=== PATIENT | male | born 1995 | race Caucasian/White ===

== ENCOUNTER 2020-05-17 09:34 | Emergency (ER) | payer OTHER, SELFPAY ==
[2020-05-17 10:02] VITALS: BP 124/90; PULSE 76; RESP 16; TEMP 37.3; O2SAT 97; BMI 17.2
--- NOTE | 2020-05-17 10:19 | ED.WOUNDLAC ---
HPI - Wound/Laceration General Chief Complaint: Wound/Laceration Stated Complaint: right finger injury Time Seen by Provider: 05/17/20 09:43 Source: patient and EMS Mode of arrival: EMS History of Present Illness HPI narrative: 24-year-old male with no significant past medical history presenting to the ED complaining of laceration to right pinky finger s/p playing with pocket knife [employer]. Denies injury to other area. Tetanus unknown. Reports pain. Denies numbness, tingling, weakness Onset (ago): hour(s) Related Data Allergies Allergy/AdvReac Type Severity Reaction Status Date / Time No Known Allergies Allergy Unverified 01/26/20 16:32 Review of Systems Review of Systems: Constitutional: No Weight loss, No Fever, No Chills Musculoskeletal: + joint pain, No Myalgias, No Joint Swelling Skin: +laceration Skin, No rash Neuro: No Weakness, No Numbness, No Paresthesias Yes all other systems are reviewed and are negative [facility] Past Medical History Attestation statement: The following information was validated with the patient. Medical History (Updated 05/17/20 @ 10:51 by GRISELDA Abernathy) No known health problems Social History Social History Advance Directives: No Advance Directives Information Provided: Yes Physical Exam Vital Signs: Vital Signs: Last Vital Signs Temp 99.2 F 05/17/20 10:02 Pulse 76 05/17/20 10:02 Resp 16 05/17/20 10:02 BP 124/90 H 05/17/20 10:02 Pulse Ox 97 05/17/20 10:02 Body Mass Index 17.2 Const: General: cooperative and healthy appearing Orientation/consciousness: patient oriented x3 Limitations: no limitations HENMT: Head: Yes normal to inspection Ears: hearing grossly normal bilaterally General nose exam: Normal external nose present Face and sinus: Yes normal facial exam Eyes: General: appearance normal, both eyes and all related structures EOM: EOMs intact bilaterally Neck: Neck: Yes normal visual inspection Resp: Effort & Inspection: normal respiratory effort Cardio: Rate: regular rate Peripheral pulses: radial pulses present Skin: Rashes: no rashes Neuro: General: patient oriented x3 Gait exam (Neuro): Normal gait present Extrem: Other: 1 cm deep laceration noted to right 5th digit PIP. Active bleeding. Range of motion intact but limited secondary to pain. No evidence of tendon rupture. Sensation intact to light touch Procedures Laceration Laceration 1: Site: hand Side (If applicable): right Size (cm): 1 Description: linear Depth: simple, single layer Local Anesthetic: lidocaine 1% Amount of anesthesia used (mL): 3 Pre-repair: irrigated extensively Skin layer closed with: nylon Size (cm): 4-0 Number of sutures: 2 Technique: simple, interrupted MDM - Wound/Laceration MDM Narrative Medical decision making narrative: On exam VSS, NAD/well-appearing, active bleeding with deep laceration noted to right pinky finger. Will update tetanus and repair wound Will have patient follow-up with orthopedic hand Discharge Plan Discharge Clinical Impression: Finger laceration Qualifiers: Encounter type: initial encounter Finger: little finger Damage to nail status: without damage Foreign body presence: without foreign body Laterality: right Qualified Code(s): S61.216A - Laceration without foreign body of right little finger without damage to nail, initial encounter Patient Disposition: Home, Self-Care Instructions: Laceration (ED) Additional Instructions: YOU HAD STITCHES PLACED IN YOUR RIGHT HAND TODAY IN THE ED, DO NOT GET WET FOR 24 HOURS AFTER 24 HOURS YOU MAY GET WET, POLY PAT DRY, DO NOT SCRUB YOU NEED TO RETURN TO THE ED IN 7-10 DAYS TO HAVE YOUR STITCHES TAKEN OUT, OR HE MAY GO TO AN URGENT CARE IF AREA BEGINS TO LOOK INFECTED, IS RED, THERE IS DRAINAGE, STREAKING, OR YOU FEVER RETURN TO THE ED HER TETANUS WAS ALSO UPDATED TODAY Referrals: Yaritza Walker MD [Physician] - 5 days
[2020-05-17] MEDS: Lidocaine HCl 1 % MPF 5 ML VIAL SUBCUT (10:22)
== END 2020-05-17 11:07 | disposition home or self-care (01) ==
PROVIDERS: Emergency Provider Emergency Medicine Emergency Medical Services; PCP Internal Medicine
DX: S61.216A Laceration without foreign body of right little finger without damage to nail, initial encounter (principal); W26.0XXA Contact with knife, initial encounter; Y93.89 Activity, other specified; Y92.019 Unspecified place in single-family (private) house as the place of occurrence of the external cause; Y99.9 Unspecified external cause status
CPT/HCPCS: 12001; 90471; 90715; 99284

== ENCOUNTER 2020-06-22 08:14 | Emergency (ER) | payer OTHER, SELFPAY ==
--- NOTE | ~2020-06-22 | XR_ITS ---
EXAMINATION: XR CHEST CLINICAL INFORMATION: Chest pain, shortness of breath. COMPARISON: None TECHNIQUE: Portable upright AP view of the chest was obtained. FINDINGS: The lungs are clear. There is no pneumothorax, pleural reaction, airspace consolidation, or groundglass opacity. The costophrenic sulci are clear. The heart is normal in size and the hilar and mediastinal contours are normal. There is gentle dextrocurvature midthoracic spine. No acute bony abnormality appreciated. XR/XR chest 1V IMPRESSION: Unremarkable examination.
[2020-06-22 08:44] VITALS: BP 116/68; BP 132/78; PULSE 107; PULSE 120; RESP 15; TEMP 36.8; O2SAT 100; BMI 20.6
[2020-06-22 08:50] VITALS: BP 116/68; PULSE 107; RESP 15; TEMP 36.8; O2SAT 100
--- NOTE | 2020-06-22 09:14 | ED_ITS ---
HPI - General Adult General Chief complaint: General Medical Stated complaint: covid symptoms Time Seen by Provider: 06/22/20 08:43 Source: patient Mode of arrival: EMS Limitations: no limitations History of Present Illness HPI narrative: 24-year-old male who presents emergency department for evaluation being ill x3 days. The patient states that he has had 5-6 episodes of loose, black, diarrheal stools per day. States that he has a cough which is productive of brown phlegm with no blood in the sputum. He states he has a tightness in the center of his chest which is worse with movement and with breathing. Also feels like his heart is racing. He had nausea but no vomiting. He felt hot and cold at home and also had shaking chills but did not take his temperature. He does have diffuse myalgias. He states he has had decreased ability to taste food. The patient works in fresh [employer] and states that he recently lost his job which has made him very anxious and upset. He states that he has significant fatigue and dyspnea on exertion. Related Data Allergies Allergy/AdvReac Type Severity Reaction Status Date / Time No Known Allergies Allergy Unverified 01/26/20 16:32 Review of Systems Review of Systems: Yes all other systems are reviewed and are negative Neurologic: Reports Abnormal speech present [facility] Past Medical History [facility] Narrative: Patient has a history of ADHD and ADD. He also states that he has anxiety. He was working in fresh [employer] but he states that he lost his job recently and this has made him very upset. He does smoke 1 pack of cigarettes per day x5 days. He denies alcohol use. He states that he smokes marijuana daily. Medical History No known health problems Social History Social History Alcohol intake: never Smoking Status: Current every day smoker Smoked in Last 30 Days: Yes Substance Use Type: Marijuana Substance Use Frequency: Daily Any prior treatment program specific to substance use: No Advance Directives: No Advance Directives Information Provided: No Physical Exam Vital Signs: Vital Signs: Last Vital Signs Temp 97.9 F 06/22/20 12:47 Pulse 85 06/22/20 12:47 Resp 16 06/22/20 12:47 BP 121/62 06/22/20 12:47 Pulse Ox 98 06/22/20 12:47 Body Mass Index 20.6 Const: General: other (Very pleasant cooperative male, appears anxious, no distress) Orientation/consciousness: oriented to person and oriented to place Limitations: no limitations HENMT: Head: Yes normal to inspection, Yes normocephalic and Yes atraumatic Ears: external ears normal General nose exam: Normal external nose present Face and sinus: Yes normal facial exam Mouth: Normal oral and palatal mucosa present Throat: Yes posterior oropharynx normal Eyes: Periorbital: periorbital findings normal Eyelids: Yes eyelids normal Conjunctivae: conjunctivae normal Sclerae: sclerae normal Corneas: corneas normal Pupils: Equal, round and reactive pupils present Direct Ophthalmoscopy: normal light reflex Neck: Neck: Yes full ROM, Yes no lymphadenopathy, Yes no meningeal signs, Yes trachea midline and Yes supple Chest: Chest palpation & inspection: normal inspection of the chest and normal palpation of entire chest wall Resp: Effort & Inspection: normal respiratory effort and able to speak in complete sentences Auscultation: clear to auscultation bilaterally Cardio: Rate: regular rate Rhythm: regular rhythm Heart sounds: S1 normal heart sound present, S2 normal heart sound present and no murmurs GI: Inspection: Yes normal to inspection Palpation (GI): Soft to palpation, nontender, no guarding, not rigid and No hepatosplenomegaly present : General: Yes no CVA tenderness Back/Spine/Pelvis: Back: no CVA tenderness Cervical Spine: normal cervical lordosis Thoracic/Lumbar Spine: thoracic and lumbar spine normal to inspection Skin: Lesions: no lesions Rashes: no rashes Wounds: no wounds Neuro: General: oriented to person, oriented to place and no meningeal signs Cranial nerves: Yes CN's II-XII intact bilaterally and Yes Equal, round and reactive pupils present Cognition (Neuro): normal cognition Speech: Abnormal speech present Motor exam (neuro): 5/5 motor strength present throughout Extrem: General: Yes normal to inspection and Yes full ROM Psych: Appearance: well kempt Mental Status: mental status grossly normal Speech and movement: Normal speech and movement present Affect: normal affect Attitude: cooperative Thought process: Normal thought process present Thought content: Normal thought content present Course Course Course Narrative: 24-year-old male with a history of ADHD, ADD, anxiety who presents emergency department with viral-like illness. Patient's physical examination revealed a was tachycardic with a pulse of 107 otherwise his vital signs are stable. He was afebrile with a temperature of 98.2? and his O2 saturation was 100% on room air. Patient had no abdominal tenderness. The patient will get a COVID-19 workup. He was treated with normal saline IV x1 L given his significant diarrhea I think he is dehydrated. He was also ordered to get Toradol 30 mg IV for his chest pain and Ativan 1 mg IV for his anxiety. 1117: The patient did tell the nurse that he used intranasal cocaine 2-3 days prior. The patient did feel better after the above treatment. Patient's laboratory evaluation revealed an elevated troponin a 49.6. Labs are otherwise negative including a negative COVID-19 test. Twelve EKG revealed sinus rhythm with early repolarization changes. I did discuss the elevated troponin with the patient and could be secondary to to prone in leak from using cocaine. I did order a 3 hour troponin the patient did agree to wait in the emergency department for this test. He is still anxious and he was given Ativan 1 mg orally. 1342: The patient's repeat troponin was 46.9 which came down slightly which is suggestive that the patient has not had an acute myocardial infarction but may have had myocardial injury most likely from using cocaine. I did discuss this with the patient. The patient is feeling significantly better and he will be discharged home. Medical Decision Making Lab Data Result diagrams: 06/22/20 09:44 06/22/20 09:40 Labs: Lab Results 06/22/20 06/22/20 06/22/20 Range/Units 09:40 09:40 09:44 WBC 9.7 (4.8-10.8) X10*3/uL RBC 5.02 (4.60-5.80) X10*6/uL Hgb 14.0 (14.0-18.0) g/dl Hct 42.5 (42-52) % MCV 84.7 (80-98) fL MCH 27.9 (27.0-33.0) pg MCHC 32.9 (31.0-36.0) g/dl RDW 13.1 (11.0-16.0) % Plt Count 245 (160-400) X10*3/uL MPV 9.1 L (9.4-12.4) fL Immature Gran % (Auto) 0.3 (0.0-0.4) % Neut % (Auto) 79.7 H (45-73) % Lymph % (Auto) 11.1 L (20-40) % [place] % (Auto) 8.3 (2-11) % Eos % (Auto) 0.4 (0-4) % Baso % (Auto) 0.2 (0-2) % Lymph # (Auto) 1.1 L (1.2-4.9) X10*3/uL [place] # (Auto) 0.8 (0.1-1.2) X10*3/uL Eos # (Auto) 0.0 (0.0-0.4) X10*3/uL Baso # (Auto) 0.0 (0.0-0.2) X10*3/uL Abs Immat Gran (auto) 0.03 (0.00-0.03) X10*3/uL Absolute Neuts (auto) 7.8 (2.0-8.3) X10*3/uL Absolute Nucleated RBC 0.000 (0.0-0.012) X10*3/uL Nucleated RBC % (auto) 0.0 (0.0-0.2) /100WBC PT (10.8-13.0) SEC INR (0.9-1.1) APTT (24.1-38.0) SEC D-Dimer NG/ML Sodium 139 (135-145) mmol/L Potassium 4.1 (3.3-5.1) mmol/L Chloride 106 (96-108) mmol/L Carbon Dioxide 25 (22-29) mmol/L Anion Gap 12 (12-20) BUN 11 (9-16) mg/dL Creatinine 0.84 (0.5-1.4) mg/dL Estim Creat Clear Calc 128.6 Estimated GFR > 60 Random Glucose 90 (60-115) mg/dL Lactic Acid (0.5-2.0) mmol/L Calcium 9.3 (8.4-10.2) mg/dL Total Bilirubin 0.3 (0.0-1.0) mg/dL AST 18 (5-37) U/L ALT 27 (0-40) U/L Alkaline Phosphatase 85 (39-117) U/L Troponin I High Sens 49.6 H (<3.5-35.0) ng/L Total Protein 7.1 (6.5-8.0) g/dL Albumin 4.3 (3.5-5.0) g/dL Lipase 16 (8-78) U/L COVID-19 (DINA) (Negative) COVID-19 Clin Com 06/22/20 06/22/20 06/22/20 Range/Units 09:44 09:44 09:44 WBC (4.8-10.8) X10*3/uL RBC (4.60-5.80) X10*6/uL Hgb (14.0-18.0) g/dl Hct (42-52) % MCV (80-98) fL MCH (27.0-33.0) pg MCHC (31.0-36.0) g/dl RDW (11.0-16.0) % Plt Count (160-400) X10*3/uL MPV (9.4-12.4) fL Immature Gran % (Auto) (0.0-0.4) % Neut % (Auto) (45-73) % Lymph % (Auto) (20-40) % [place] % (Auto) (2-11) % Eos % (Auto) (0-4) % Baso % (Auto) (0-2) % Lymph # (Auto) (1.2-4.9) X10*3/uL [place] # (Auto) (0.1-1.2) X10*3/uL Eos # (Auto) (0.0-0.4) X10*3/uL Baso # (Auto) (0.0-0.2) X10*3/uL Abs Immat Gran (auto) (0.00-0.03) X10*3/uL Absolute Neuts (auto) (2.0-8.3) X10*3/uL Absolute Nucleated RBC (0.0-0.012) X10*3/uL Nucleated RBC % (auto) (0.0-0.2) /100WBC PT 12.3 (10.8-13.0) SEC INR 1.0 (0.9-1.1) APTT 35.2 (24.1-38.0) SEC D-Dimer < 200 NG/ML Sodium (135-145) mmol/L Potassium (3.3-5.1) mmol/L Chloride (96-108) mmol/L Carbon Dioxide (22-29) mmol/L Anion Gap (12-20) BUN (9-16) mg/dL Creatinine (0.5-1.4) mg/dL Estim Creat Clear Calc Estimated GFR Random Glucose (60-115) mg/dL Lactic Acid 1.0 (0.5-2.0) mmol/L Calcium (8.4-10.2) mg/dL Total Bilirubin (0.0-1.0) mg/dL AST (5-37) U/L ALT (0-40) U/L Alkaline Phosphatase (39-117) U/L Troponin I High Sens (<3.5-35.0) ng/L Total Protein (6.5-8.0) g/dL Albumin (3.5-5.0) g/dL Lipase (8-78) U/L COVID-19 ([facility]INA) Negative (Negative) COVID-19 Clin Com See Note 06/22/20 Range/Units 12:50 WBC (4.8-10.8) X10*3/uL RBC (4.60-5.80) X10*6/uL Hgb (14.0-18.0) g/dl Hct (42-52) % MCV (80-98) fL MCH (27.0-33.0) pg MCHC (31.0-36.0) g/dl RDW (11.0-16.0) % Plt Count (160-400) X10*3/uL MPV (9.4-12.4) fL Immature Gran % (Auto) (0.0-0.4) % Neut % (Auto) (45-73) % Lymph % (Auto) (20-40) % [place] % (Auto) (2-11) % Eos % (Auto) (0-4) % Baso % (Auto) (0-2) % Lymph # (Auto) (1.2-4.9) X10*3/uL [place] # (Auto) (0.1-1.2) X10*3/uL Eos # (Auto) (0.0-0.4) X10*3/uL Baso # (Auto) (0.0-0.2) X10*3/uL Abs Immat Gran (auto) (0.00-0.03) X10*3/uL Absolute Neuts (auto) (2.0-8.3) X10*3/uL Absolute Nucleated RBC (0.0-0.012) X10*3/uL Nucleated RBC % (auto) (0.0-0.2) /100WBC PT (10.8-13.0) SEC INR (0.9-1.1) APTT (24.1-38.0) SEC D-Dimer NG/ML Sodium (135-145) mmol/L Potassium (3.3-5.1) mmol/L Chloride (96-108) mmol/L Carbon Dioxide (22-29) mmol/L Anion Gap (12-20) BUN (9-16) mg/dL Creatinine (0.5-1.4) mg/dL Estim Creat Clear Calc Estimated GFR Random Glucose (60-115) mg/dL Lactic Acid (0.5-2.0) mmol/L Calcium (8.4-10.2) mg/dL Total Bilirubin (0.0-1.0) mg/dL AST (5-37) U/L ALT (0-40) U/L Alkaline Phosphatase (39-117) U/L Troponin I High Sens 46.2 H (<3.5-35.0) ng/L Total Protein (6.5-8.0) g/dL Albumin (3.5-5.0) g/dL Lipase (8-78) U/L COVID-19 ([facility]INA) (Negative) COVID-19 Clin Com ECG Data Attestation: I personally reviewed and interpreted this ECG as follows: Interpretation: 1112: Normal sinus rhythm with rate of 91, normal CO, QRS and QTC intervals, are R prime complex in lead 3, early repolarization changes the 2 through V6, no ST segment elevation or depression, no old EKG for comparison Discharge Plan Discharge Clinical Impression: Viral syndrome, Elevated troponin, Cocaine use disorder Patient Disposition: Home, Self-Care Instructions: Viral Syndrome (ED) Additional Instructions: Your COVID test was negative. Your blood work showed an elevation in your troponin which suggested that you may have injured your heart from using cocaine several days prior. Do not use cocaine again in the future since this can cause a heart attack and could cause you to . Take ibuprofen 200 mg pills, 3 pills every 6 hours as needed for pain. Take Tylenol (acetaminophen) 500 mg pills, 2 pills every 4 to 6 hours as needed for pain. Follow-up with your doctor in 2 days. Please return to the emergency department if your symptoms get worse or if you develop any symptoms that are concerning to you.
--- NOTE | 2020-06-22 09:15 | ECG_ITS ---
Test Reason : Chest pain Blood Pressure : / mmHG Vent. Rate : 090 BPM Atrial Rate : 090 BPM P-R Int : 176 ms QRS Dur : 082 ms QT Int : 338 ms P-R-T Axes : 000 047 -10 degrees QTc Int : 413 ms Normal sinus rhythm ST elevation, consider early repolarization, pericarditis, or injury Abnormal ECG No previous ECGs available Referred By: Tye Saunders Electronically Signed By:ANGELINA KHALIL MD
[2020-06-22 09:46] LABS: MANUAL DIFF FLAG NO
[2020-06-22 09:47] LABS: Basophils Percent Auto 0.2 % (0-2); Eosinophils Percent Auto 0.4 % (0-4); Hematocrit 42.5 % (42-52); Imm Gran Abs Auto 0.03 X10*3/uL (0.00-0.03); Imm Gran Pct Auto 0.3 % (0.0-0.4); Lymphocytes Absolute Auto 1.1 X10*3/uL (1.2-4.9); Lymphocytes Percent Auto 11.1 % (20-40); Mean Corpuscular HGB Conc 32.9 g/dl (31.0-36.0); Mean Corpuscular Hemoglobin 27.9 pg (27.0-33.0); Mean Corpuscular Volume 84.7 fL (80-98); Mean Platelet Volume 9.1 fL (9.4-12.4); Monocytes Absolute Auto 0.8 X10*3/uL (0.1-1.2); Monocytes Percent Auto 8.3 % (2-11); Neutrophils Absolute Auto 7.8 X10*3/uL (2.0-8.3); Neutrophils Percent Auto 79.7 % (45-73); Platelet Count 245 X10*3/uL (160-400); Red Blood Count 5.02 X10*6/uL (4.60-5.80); Red Cell Distribution Width 13.1 % (11.0-16.0); White Blood Count 9.7 X10*3/uL (4.8-10.8)
[2020-06-22 09:53] LABS: Prothrombin Time 12.3 SEC (10.8-13.0)
[2020-06-22 09:56] LABS: Partial Thromboplastin Time 35.2 SEC (24.1-38.0)
[2020-06-22 09:57] LABS: D Dimer < 200 NG/ML
[2020-06-22 10:03] LABS: COVID-19 Test Negative (Negative)
[2020-06-22 10:18] LABS: Alanine Aminotransferase 27 U/L (0-40); Albumin Level 4.3 g/dL (3.5-5.0); Alkaline Phosphatase 85 U/L (39-117); Anion Gap 12 (12-20); Aspartate Amino Transferase 18 U/L (5-37); Bilirubin Total 0.3 mg/dL (0.0-1.0); Blood Urea Nitrogen 11 mg/dL (9-16); Calcium 9.3 mg/dL (8.4-10.2); Carbon Dioxide 25 mmol/L (22-29); Chloride 106 mmol/L (96-108); Creatinine Clr Calc Pharmacy 128.6; Estimated Glomerular Filt Rate > 60; Glucose Random 90 mg/dL (60-115); Lipase 16 U/L (8-78); Potassium 4.1 mmol/L (3.3-5.1); Sodium 139 mmol/L (135-145); Total Protein 7.1 g/dL (6.5-8.0)
[2020-06-22] MEDS: 0.9 % Sodium Chloride 1,000 ML 999 ML IV (10:19)
[2020-06-22] MEDS: LORazepam 2 MG/ML VIAL 1 MG IVPUSH (10:20)
[2020-06-22] MEDS: Ketorolac Tromethamine 30 MG/ML VIAL IVPUSH (10:21)
[2020-06-22 10:26] LABS: Troponin-I High Sensitivity 49.6 ng/L (<3.5-35.0)
[2020-06-22 10:39] VITALS: BP 115/66; PULSE 80; RESP 15; O2SAT 100
[2020-06-22 10:51] VITALS: BP 115/60; PULSE 80; RESP 16; TEMP 36.7; O2SAT 99
[2020-06-22 12:47] VITALS: BP 121/62; PULSE 85; RESP 16; TEMP 36.6; O2SAT 98
[2020-06-22 13:25] LABS: Troponin-I High Sensitivity 46.2 ng/L (<3.5-35.0)
== END 2020-06-22 13:50 | disposition home or self-care (01) ==
PROVIDERS: Emergency Provider Emergency Medicine Emergency Medical Services; PCP Internal Medicine
DX: B34.9 Viral infection, unspecified (principal); Z20.822 Contact with and (suspected) exposure to COVID-19; R77.8 Other specified abnormalities of plasma proteins; F14.90 Cocaine use, unspecified, uncomplicated; F41.9 Anxiety disorder, unspecified; F17.210 Nicotine dependence, cigarettes, uncomplicated
CPT/HCPCS: 36415; 71045; 80053; 83605; 83690; 84484; 85025; 85379; 85610; 85730; 87635; 93005; 96361; 96374; 96375; 99284; J1885; J2060